=== PATIENT | male | born 1965 | race Caucasian/White ===

== ENCOUNTER 2022-10-20 08:01 | Outpatient (CLI) | payer OTHER, SELFPAY | END 2022-10-20 08:02 | disposition home or self-care (01) | LOC: NFLDREF 17:48 | PROVIDERS: PCP Family Medicine; Referring Provider Family Medicine; Visit Provider Family Medicine | DX: Z00.00 Encounter for general adult medical examination without abnormal findings (principal); Z12.5 Encounter for screening for malignant neoplasm of prostate; Z13.6 Encounter for screening for cardiovascular disorders | CPT/HCPCS: 80048; 80061; 84153 ==

== ENCOUNTER 2022-11-26 11:07 | Outpatient (CLI) | payer OTHER, SELFPAY ==
--- NOTE | 2022-11-26 11:52 | W.ANESCHARGE ---
Anesthesia Charges Start Date/Time Anesthesia Start Date: 11/26/22 Anesthesia Start Time: 11:42 Stop Date/Time Anesthesia Stop Date: 11/26/22 Anesthesia Stop Time: 12:06
--- NOTE | 2022-11-26 12:10 | W.ANESCHARGE ---
Anesthesia Charges Start Date/Time Anesthesia Start Date: 11/26/22 Anesthesia Start Time: 11:42 Stop Date/Time Anesthesia Stop Date: 11/26/22 Anesthesia Stop Time: 12:06
== END 2022-11-26 11:08 | disposition home or self-care (01) ==
LOC: OP CLINIC 11:07
PROVIDERS: PCP Family Medicine; Visit Provider Internal Medicine
DX: Z12.11 Encounter for screening for malignant neoplasm of colon (principal); K63.5 Polyp of colon; K57.30 Diverticulosis of large intestine without perforation or abscess without bleeding
CPT/HCPCS: 00811; 45380; 88305; J2704

== ENCOUNTER 2023-10-24 19:09 | Outpatient (CLI) | payer OTHER, SELFPAY | END 2023-10-24 19:10 | disposition home or self-care (01) | LOC: LKVREF 19:10 | PROVIDERS: PCP Family Medicine; Visit Provider Family Medicine | DX: R31.9 Hematuria, unspecified (principal); Z12.5 Encounter for screening for malignant neoplasm of prostate | CPT/HCPCS: 87086; G0103 ==

== ENCOUNTER 2023-11-02 12:43 | Outpatient (CLI) | payer OTHER, SELFPAY ==
--- NOTE | 2023-11-02 13:00 | CRLHL7_ITS ---
For Patients: As a result of the Century Cures Act, medical imaging exams and procedure reports are released immediately into your electronic medical record. You may view this report before your referring provider. If you have questions, please contact your health care provider. INDICATION: Hematuria, history of kidney stones. TECHNIQUE: CT abdomen and pelvis acquired with 100 cc Omnipaque 350 IV contrast. COMPARISON: CT abdomen and pelvis 03/11/2020. FINDINGS: Lower chest: Incompletely imaged although similar right middle lobe pulmonary nodule measuring 4 mm (/). Liver: Unremarkable. Normal in size and attenuation. No suspicious masses. Gallbladder and bile ducts: Unremarkable. No stones or inflammation. No biliary dilatation. Pancreas: Unremarkable. No mass or inflammation. Spleen: Few punctate calcifications, likely sequela of prior granulomatous disease. Normal in size. No masses. Adrenal glands: Unremarkable. No nodules. Kidneys: Increased size of a nonobstructing right lower renal pole calculus measuring 6 mm (), previously 2 mm. Decreased size of a nonobstructing left lower renal pole calculus measuring 6 mm (), previously 7 mm. Resolution of previously seen obstructing left ureteral calculus. No ureteral calculi are appreciated on today`s exam. No hydronephrosis. The right ureter is well opacified without filling defect. The left ureter is suboptimally opacified. Increased right renal cyst measuring 2.1 cm, previously 1.5 cm. Bladder: Normal wall thickness. No bladder masses. GI tract: Unremarkable. Normal in caliber. No sign of mass or inflammation. Normal appendix. Vasculature: Abdominal aorta is normal in caliber. Mesenteric arteries are patent. Lymph nodes: No lymphadenopathy. Peritoneum/Abdominal Wall: Small, [id number], fat containing inguinal hernias. No sign of mass or infiltration. No free air or significant free fluid. Pelvis: Prostatomegaly with prostatic calcifications. Bones: Multilevel degenerative change of the imaged spine. Posterior fusion of L4-L5. IMPRESSION: Bilateral nonobstructing renal calculi measuring up to 6 mm. No ureteral calculi or right ureteral filling defects. The left ureter is suboptimally opacified. The bladder is unremarkable. Please note that all CT scans at this facility use dose modulation, iterative reconstruction, and/or weight-based dosing when appropriate to reduce radiation dose to as low as reasonably achievable. Dictated by Ria Trinidad MD @ 11/04/2023 9:23:18 AM (Electronically Signed)
== END 2023-11-02 12:44 | disposition home or self-care (01) ==
LOC: CT 12:44
PROVIDERS: PCP Family Medicine; Visit Provider Family Medicine
DX: R31.9 Hematuria, unspecified (principal); N20.0 Calculus of kidney
CPT/HCPCS: 74178; Q9967

== ENCOUNTER 2024-11-21 07:51 | Outpatient (CLI) | payer BC, SELFPAY | END 2024-11-21 07:52 | disposition home or self-care (01) | LOC: NFLDREF 11-23 15:28 | PROVIDERS: PCP Family Medicine; Referring Provider Family Medicine; Visit Provider Family Medicine | DX: Z00.00 Encounter for general adult medical examination without abnormal findings (principal); N20.0 Calculus of kidney | CPT/HCPCS: 80053; 80061; G0103 ==